=== PATIENT | female | born 1975 | race Two or more races ===

== ENCOUNTER 2018-11-13 05:47 | Emergency (ER) | payer OTHER ==
[~2018-11-13] VITALS: Ht 160 cm; Wt 79.4 kg
[~2018-11-13 05:47] MED LIST: KLONOPIN1 MG/TAB PO; ZOLOFT25 MG PO
== END 2018-11-13 17:30 | disposition home or self-care (01) ==
LOC: ER 05:47
DX: N83.291 Other ovarian cyst, right side (principal); R10.31 Right lower quadrant pain

== ENCOUNTER 2022-04-14 19:44 | Emergency (ER) | payer OTHER ==
[~2022-04-14] VITALS: Ht 160 cm; Wt 74.8 kg
== END 2022-04-14 23:48 | disposition home or self-care (01) ==
LOC: ER 19:44
DX: R00.0 Tachycardia, unspecified (principal); M54.89 Other dorsalgia; Z20.822 Contact with and (suspected) exposure to COVID-19